=== PATIENT | male | born 1975 | race Caucasian/White ===

== ENCOUNTER 2021-02-17 10:32 | Inpatient (IN) | payer BC, MEDICAID ==
[~2021-02-17] VITALS: Ht 175.3 cm; Wt 118.8 kg
[2021-02-17] MEDS ORDERED: HYDR12.54 PO (10:44)
[2021-02-17] MEDS ORDERED: BENA5TAB6 PO (10:44)
[2021-02-17 12:08] LABS: BASOPHILS % 1.2 % (0.0-2.0); EOSINOPHILS % 1.1 % (0.0-5.0); HEMATOCRIT. 46.3 % (42.0-52.0); HEMOGLOBIN. 15.3 g/dL (14.0-18.0); LYMPHOCYTES % 17.4 % (20.0-50.0); MEAN CORPUSCULAR VOLUME 81.7 fL (80.0-94.0); MEAN PLATELET VOLUME 9.9 fl (7.4-10.4); MONOCYTES % 6.8 % (2.0-8.0); NEUTROPHILS % 73.5 % (40.0-76.0); PLATELET 251 x1000/uL (130-400); RED BLOOD CELL COUNT 5.66 mill/uL (4.7-6.1); RED CELL DISTRIBUTION WIDTH 15.9 % (11.6-14.6)
[2021-02-17 12:14] LABS: CHLORIDE 113 mEq/L (98-107)
[2021-02-17 22:39] VITALS: BP 182/113
[2021-02-17 22:58] VITALS: BP 182/113
[2021-02-17] MEDS ORDERED: FUROSEMIDE 20MG/2ML VIAL IV SCH (23:15)
[2021-02-17] MEDS ORDERED: ACETAMINOPHEN 325MG TABLET PO PRN (23:15)
[2021-02-17] MEDS: LISINOPRIL 5MG TABLET PO SCH (23:46)
[2021-02-18 01:00] VITALS: BP 159/103
[2021-02-18 04:00] VITALS: BP 168/118
[2021-02-18] MEDS: HYDRALAZINE 20MG/ML VIAL IV PRN ×2 (04:45→17:33)
[2021-02-18 07:26] LABS: CHLORIDE 110 mEq/L (98-107)
[2021-02-18 07:43] LABS: BASOPHILS % 1.3 % (0.0-2.0); EOSINOPHILS % 1.5 % (0.0-5.0); HEMATOCRIT. 46.2 % (42.0-52.0); HEMOGLOBIN. 15.4 g/dL (14.0-18.0); LYMPHOCYTES % 19.4 % (20.0-50.0); MEAN CORPUSCULAR VOLUME 81.1 fL (80.0-94.0); MEAN PLATELET VOLUME 10.1 fl (7.4-10.4); MONOCYTES % 9.1 % (2.0-8.0); NEUTROPHILS % 68.7 % (40.0-76.0); PLATELET 246 x1000/uL (130-400); RED CELL DISTRIBUTION WIDTH 15.7 % (11.6-14.6)
[2021-02-18 08:00] VITALS: BP 147/101
[2021-02-18] MEDS: ASPIRIN 81MG TABLET PO SCH (08:44)
[2021-02-18] MEDS: POTASSIUM CHLORIDE 20MEQ TABLET SR PO SCH (08:44)
[2021-02-18] MEDS: ENOXAPARIN 30MG/0.3ML SYR SUBCUT SCH ×2 (08:45→21:26)
[2021-02-18] MEDS: FUROSEMIDE 20MG/2ML VIAL IV SCH ×2 (08:45→17:33)
[2021-02-18] MEDS: AMLODIPINE 5MG TABLET PO SCH ×2 (08:45→21:25)
[2021-02-18] MEDS ORDERED: REGADENOSON 0.4 MG/5 ML IV SCH (08:45)
[2021-02-18] MEDS: LISINOPRIL 5MG TABLET PO SCH (08:47)
[2021-02-18 12:00] VITALS: BP 144/104
[2021-02-18] MEDS ORDERED: REGADENOSON 0.4 MG/5 ML IV ONE (13:50)
[2021-02-18 16:00] VITALS: BP 155/107
[2021-02-18 16:32] LABS: *AMPHETAMINES SCREEN URINE NEGATIVE (NEGATIVE); *BARBITURATES SCREEN URINE NEGATIVE (NEGATIVE); CANNABINOID URINE SCREEN NEGATIVE (NEGATIVE); METHADONE URINE SCREEN NEGATIVE (NEGATIVE); OPIATES URINE SCREEN NEGATIVE (NEGATIVE); PHENCYCLIDINE URINE SCREEN NEGATIVE (NEGATIVE)
[2021-02-18 16:33] LABS: *BENZODIAZEPINES SCREEN URINE NEGATIVE (NEGATIVE); *COCAINE SCREEN URINE NEGATIVE (NEGATIVE)
[2021-02-18 20:00] VITALS: BP 110/81
[2021-02-18] MEDS: ATORVASTATIN CALCIUM 40MG TABLET PO SCH (21:25)
[2021-02-19] VITALS: BP 121/85
[2021-02-19 04:00] VITALS: BP 142/95
[2021-02-19 05:36] LABS: CHLORIDE 107 mEq/L (98-107)
[2021-02-19] MEDS: FUROSEMIDE 20MG/2ML VIAL IV SCH (06:32)
[2021-02-19 07:06] LABS: BASOPHILS % 1.5 % (0.0-2.0); EOSINOPHILS % 2.8 % (0.0-5.0); HEMOGLOBIN. 15.9 g/dL (14.0-18.0); LYMPHOCYTES % 20.7 % (20.0-50.0); MEAN CORPUSCULAR HEMOGLOBIN 26.8 pg (28.0-32.0); MONOCYTES % 11.1 % (2.0-8.0); NEUTROPHILS % 63.9 % (40.0-76.0); PLATELET 247 x1000/uL (130-400); RED BLOOD CELL COUNT 5.93 mill/uL (4.7-6.1); RED CELL DISTRIBUTION WIDTH 16.1 % (11.6-14.6)
[2021-02-19 08:00] VITALS: BP 138/96
[2021-02-19] MEDS: LISINOPRIL 5MG TABLET PO SCH (08:44)
[2021-02-19] MEDS: ASPIRIN 81MG TABLET PO SCH (08:44)
[2021-02-19] MEDS: AMLODIPINE 5MG TABLET PO SCH (08:44)
[2021-02-19] MEDS: ENOXAPARIN 30MG/0.3ML SYR SUBCUT SCH ×2 (08:44→20:43)
[2021-02-19] MEDS: POTASSIUM CHLORIDE 20MEQ TABLET SR PO SCH (08:44)
[2021-02-19 12:00] VITALS: BP 136/93
[2021-02-19] MEDS ORDERED: POTASSIUM CHLORIDE 20MEQ TABLET SR PO NR (15:00)
[2021-02-19 16:00] VITALS: BP 132/90
[2021-02-19] MEDS: LOSARTAN POTASSIUM 25 MG TABLET PO SCH (16:59)
[2021-02-19] MEDS: CARVEDILOL 3.125 MG TABLET PO SCH (16:59)
[2021-02-19] MEDS: SPIRONOLACTONE 25MG TABLET PO SCH (16:59)
[2021-02-19 20:00] VITALS: BP 133/96
[2021-02-19] MEDS: ATORVASTATIN CALCIUM 40MG TABLET PO SCH (20:42)
[2021-02-20] VITALS (7 sets, daily range): BP systolic 137–147; BP diastolic 87–108
[2021-02-20] MEDS: CARVEDILOL 3.125 MG TABLET PO SCH ×3 (00:06→16:53)
[2021-02-20 08:39] LABS: BASOPHILS % 1.5 % (0.0-2.0); HEMATOCRIT. 49.5 % (42.0-52.0); HEMOGLOBIN. 16.3 g/dL (14.0-18.0); LYMPHOCYTES % 25.5 % (20.0-50.0); MEAN CORPUSCULAR HEMOGLOBIN 26.9 pg (28.0-32.0); MEAN CORPUSCULAR VOLUME 81.6 fL (80.0-94.0); MEAN PLATELET VOLUME 9.7 fl (7.4-10.4); MONOCYTES % 11.2 % (2.0-8.0); NEUTROPHILS % 58.8 % (40.0-76.0); PLATELET 278 x1000/uL (130-400); RED BLOOD CELL COUNT 6.07 mill/uL (4.7-6.1); RED CELL DISTRIBUTION WIDTH 15.7 % (11.6-14.6)
[2021-02-20] MEDS: LOSARTAN POTASSIUM 25 MG TABLET PO SCH ×2 (08:41→16:53)
[2021-02-20] MEDS: POTASSIUM CHLORIDE 20MEQ TABLET SR PO SCH (08:41)
[2021-02-20] MEDS: SPIRONOLACTONE 25MG TABLET PO SCH (08:42)
[2021-02-20] MEDS: ASPIRIN 81MG TABLET PO SCH (08:42)
[2021-02-20] MEDS: ENOXAPARIN 30MG/0.3ML SYR SUBCUT SCH (08:43)
[2021-02-20] MEDS ORDERED: FUROSEMIDE 20MG TABLET PO SCH (09:00)
[2021-02-20 09:04] LABS: CHLORIDE 109 mEq/L (98-107)
[2021-02-20] MEDS ORDERED: LOSARTAN POTASSIUM 25 MG TABLET PO NR (14:15)
[2021-02-20] MEDS ORDERED: AMLODIPINE 5MG TABLET PO NR (14:15)
[2021-02-20] MEDS ORDERED: CARV6.2548 MT (17:40)
[2021-02-20] MEDS ORDERED: FURO20TA4 PO (17:40)
[2021-02-20] MEDS ORDERED: LOSA25TA3 PO (17:40)
[2021-02-20] MEDS ORDERED: SPIR25TA PO (17:40)
== END 2021-02-20 18:50 | disposition home or self-care (01) | DRG 316 ==
LOC: ER 10:32 → 6WST 16:24 → EDBEDREQTM 16:26 → EDBEDREQ 16:26 → ENRESERV 19:37
PROVIDERS: ADMIT Family Medicine Adult Medicine; ATTEND Family Medicine Adult Medicine
DX: I42.0 Dilated cardiomyopathy (principal); I44.7 Left bundle-branch block, unspecified; G47.33 Obstructive sleep apnea (adult) (pediatric); I11.0 Hypertensive heart disease with heart failure; R79.89 Other specified abnormal findings of blood chemistry; R53.1 Weakness; E78.5 Hyperlipidemia, unspecified; I49.1 Atrial premature depolarization; I50.9 Heart failure, unspecified; Z79.899 Other long term (current) drug therapy; Z82.3 Family history of stroke
CPT/HCPCS: 36415; 71045; 78452; 80048; 80053; 80076; 80305; 83735; 83880; 84443; 84484; 85025; 93005; 93017; 93306; 99291; A9500; J0360; J1650; J1940; J2785